=== PATIENT | female | born 1955 | race Caucasian/White ===

== ENCOUNTER → 2019-01-24 | Outpatient (CLI) | payer MEDICARE, OTHER ==
[~2019-01-24] MED LIST: NEXIUM; PHENERGAN 25 MG25 M1 PO; PROMETRIUM
--- NOTE | 2019-01-24 14:57 | 2DMMODE ---
[place] [address] 2 D/M-MODE ECHOCARDIOGRAM Name: DEBBIE RAMÍREZ Room: [facility]#: [id number] Admission: 01/24/19 Attend Phys: Rosalio Ingram, Discharge: Date of : 57 Date of Service: 01/24/19 1456 Report #: [id number] THIS REPORT FOR: //name// APPROVED REPORT Study performed: 01/24/2019 10:59:46 EXAM: Comprehensive 2D, Doppler, and color-flow Echocardiogram Patient Location: Out-Patient BSA: 1.87 HR: 64 bpm BP: 118/79 mmHg Other Information Study Quality: Good Indications Chest Pain 2D Dimensions IVSd: 11.70 (7-11mm) LVOT Diam: 19.89 (18-24mm) LVDd: 40.70 mm PWd: 10.02 (7-11mm) Ascending Ao: 26.34 (22-36mm) LVDs: 24.28 (25-40mm) Aortic Root: 27.88 mm Volumes Left Atrial Volume (Systole) LA ESV Index: 22.80 mL/m2 Aortic Valve AoV Peak Greg.: 1.61 m/s AO Peak Gr.: 10.41 mmHg LVOT Max P.87 mmHg AO Mean Gr.: 4.64 mmHg LVOT Mean P.80 mmHg LVOT Max V: 1.31 m/s AO V2 VTI: 28.88 cm LVOT Mean V: 0.74 m/s STUART (VTI): 2.52 cm2 LVOT V1 VTI: 23.45 cm Mitral Valve E/A Ratio: 1.03 MV Decel. Time: 192.69 ms MV E Max Greg.: 0.69 m/s MV PHT: 55.88 ms MVA (PHT): 3.94 [place] [address] 2 D/M-MODE ECHOCARDIOGRAM Name: DEBBIE RAMÍREZ Room: [facility]#: [id number] Admission: 01/24/19 Attend Phys: Rosalio Ingram, Discharge: Date of : 57 Date of Service: 01/24/19 1456 Report #: [id number] TDI E/Lateral E': 5.31 E/Medial E': 6.90 Medial E' Greg.: 0.10 m/s Lateral E' Greg.: 0.13 m/s Pulmonary Valve PV Peak Greg.: 1.12 m/s PV Peak Gr.: 4.98 mmHg Tricuspid Valve RAP Estimate: 5.00 mmHg TR Peak Gr.: 25.11 mmHg RVSP: 30.11 mmHg PA Pressure: 30.11 mmHg Left Ventricle The left ventricle is normal size. There is normal LV segmental wall motion. There is normal left ventricular wall thickness. Left ventricular systolic function is normal. The left ventricular ejection fraction is within the normal range. LVEF is 55-60%. The left ventricular diastolic function is normal. Right Ventricle The right ventricle is normal size. The right ventricular systolic function is normal. Atria The left atrium size is normal. The right atrium size is normal. Aortic Valve The aortic valve is normal in structure. No aortic regurgitation is present. There is no aortic valvular stenosis. Mitral Valve The mitral valve is normal in structure. Mild mitral regurgitation. No evidence of mitral valve stenosis. Tricuspid Valve The tricuspid valve is normal in structure. Mild tricuspid regurgitation. estimated pa pressure 30 mm Hg Pulmonic Valve The pulmonary valve is normal in structure. There is no pulmonic valvular regurgitation[place] [address] 2 D/M-MODE ECHOCARDIOGRAM Name: DARRELLDEBBIE Hernández Room: [facility]#: [id number] Admission: 01/24/19 Attend Phys: Rosalio Ingram, Discharge: Date of : 57 Date of Service: 01/24/19 1456 Report #: [id number] The aortic root is normal in size. IVC is normal in size and collapses >50% with inspiration. Pericardium There is no pericardial effusion. <Conclusion> LVEF is 55-60%. Mild mitral regurgitation. Mild tricuspid regurgitation. estimated pa pressure 30 mm Hg <ELECTRONICALLY SIGNED> By: Rosalio Dixon MD, [facility] 01/24/19 1456 55 [id number] Rosalio Dixon MD, [facility] /INF
== END ==
LOC: M.CRD 10:57
DX: I08.1 Rheumatic disorders of both mitral and tricuspid valves (principal); K55.1 Chronic vascular disorders of intestine; G47.33 Obstructive sleep apnea (adult) (pediatric); I10 Essential (primary) hypertension; G70.00 Myasthenia gravis without (acute) exacerbation

== ENCOUNTER → 2020-09-24 | Outpatient (CLI) | payer MEDICARE, OTHER ==
--- NOTE | 2020-09-24 13:44 | 2DMMODE ---
[place] [address] 2 D/M-MODE ECHOCARDIOGRAM Name: DARRELLDEBBIE MARES Room: [facility]#: [id number] Admission: 09/24/20 Attend Phys: SIXTO Ruiz Discharge: Date of : 57 Date of Service: 09/24/20 1343 Report #: [id number] THIS REPORT FOR: cc: Torie Mancini Tammy RNP Holkins, John M. MD [facility] ~ APPROVED REPORT Study performed: 09/24/2020 10:29:00 EXAM: Comprehensive 2D, Doppler, and color-flow Echocardiogram Patient Location: Out-Patient BSA: 1.88 HR: 77 bpm BP: 102/68 mmHg Other Information Study Quality: Good Indications Syncope Chest Pain 2D Dimensions IVSd: 11.21 (7-11mm) LVOT Diam: 19.38 (18-24mm) LVDd: 43.76 mm PWd: 11.01 (7-11mm) Ascending Ao: 28.12 (22-36mm) LVDs: 22.94 (25-40mm) Aortic Root: 25.96 mm Volumes Left Atrial Volume (Systole) LA ESV Index: 18.90 mL/m2 Aortic Valve AoV Peak Greg.: 1.73 m/s AO Peak Gr.: 11.96 mmHg LVOT Max P.27 mmHg AO Mean Gr.: 6.10 mmHg LVOT Mean P.05 mmHg LVOT Max V: 1.25 m/s AO V2 VTI: 31.73 cm LVOT Mean V: 0.80 m/s STUART (VTI): 2.42 cm2 LVOT V1 VTI: 26.03 [place] [address] 2 D/M-MODE ECHOCARDIOGRAM Name: DEBBIE RAMÍREZ Room: [facility]#: [id number] Admission: 09/24/20 Attend Phys: SIXTO Ruiz Discharge: Date of : 57 Date of Service: 09/24/20 1343 Report #: [id number] E/A Ratio: 0.90 MV Decel. Time: 163.68 ms MV E Max Greg.: 0.69 m/s MV PHT: 47.47 ms MVA (PHT): 4.63 cm2 TDI E/Lateral E': 5.75 E/Medial E': 6.90 Medial E' Greg.: 0.10 m/s Lateral E' Greg.: 0.12 m/s Pulmonary Valve PV Peak Greg.: 1.01 m/s PV Peak Gr.: 4.04 mmHg Tricuspid Valve RAP Estimate: 5.00 mmHg TR Peak Gr.: 20.38 mmHg RVSP: 25.38 mmHg PA Pressure: 25.38 mmHg Left Ventricle The left ventricle is normal size. There is normal LV segmental wall motion. There is normal left ventricular wall thickness. Left ventricular systolic function is normal. The left ventricular ejection fraction is within the normal range. LVEF is 60-65%. The left ventricular diastolic function is normal. Right Ventricle The right ventricle is normal size. The right ventricular systolic function is normal. Atria The left atrium size is normal. The right atrium size is normal. Aortic Valve The aortic valve is normal in structure. No aortic regurgitation is present. There is no aortic valvular stenosis. Mitral Valve The mitral valve is normal in structure. Mild mitral regurgitation. No evidence of mitral valve stenosis. Tricuspid Valve The tricuspid valve is normal in structure. Mild [place]icus[place] [address] 2 D/M-MODE ECHOCARDIOGRAM Name: DEBBIE RAMÍREZ Room: [facility]#: [id number] Admission: 09/24/20 Attend Phys: SIXTO Ruiz Discharge: Date of : 57 Date of Service: 09/24/20 1343 Report #: [id number] Pulmonic Valve The pulmonary valve is normal in structure. There is no pulmonic valvular regurgitation. Great Vessels The aortic root is normal in size. IVC is normal in size and collapses >50% with inspiration. Pericardium There is no pericardial effusion. <Conclusion> The left ventricle is normal size. There is normal left ventricular wall thickness. Left ventricular systolic function is normal. The left ventricular ejection fraction is within the normal range. LVEF is 60-65%. The right ventricle is normal size. The left atrium size is normal. The aortic valve is normal in structure. The mitral valve is normal in structure. Mild mitral regurgitation. Mild tricuspid regurgitation. IVC is normal in size and collapses >50% with inspiration. There is no pericardial effusion. There is normal LV segmental wall motion. <ELECTRONICALLY SIGNED> By: Marcus Loaiza MD, FACC 09/24/20 1343 1343 1343 Marcus Loaiza MD, FACC /INF
== END ==
LOC: M.CRD 09-19 11:54
PROVIDERS: ATTEND Registered Nurse Diabetes Educator
DX: I08.1 Rheumatic disorders of both mitral and tricuspid valves (principal); I65.23 Occlusion and stenosis of bilateral carotid arteries; M54.2 Cervicalgia; R53.83 Other fatigue; Z79.899 Other long term (current) drug therapy